=== PATIENT | male | born 1955 | race Two or more races ===

== ENCOUNTER 2017-08-15 21:17 | Inpatient (IN) | payer MEDICAID ==
--- NOTE | 2017-08-15 21:56 | EDPHY ---
H & P Stated Complaint: pt says he tripped and fell onto R hip, c/o R hip pain, unable to bear wt Time Seen by Provider: 08/15/17 21:50 HPI/ROS: Chief Complaint: Right hip pain HPI: 62-year-old male was shopping at [employer] when he tripped and fell onto his right hip. He did not hit his head. He had no loss of conscious. He is complaining of pain in his right hip and right upper thigh. He has not been able to walk on it. No prior injuries. No numbness or weakness. ROS: 10 point Review of Systems is negative except as noted in the HPI. PMH: Hypertension diabetes Social History: No smoking, no alcohol, no recreational drug use Family History: non-contributory Physical Exam: Gen: Awake, Alert, No Distress HEENT: Nose: no rhinorrhea Eyes: PERRLA, EOMI Mouth: Moist mucosa Neck: Supple, no JVD Chest: nontender, lungs clear to auscultation Heart: S1, S2 normal, no murmur Abd: Soft, non-tender, no guarding Back: no CVA tenderness, no midline tenderness Ext: no edema, is tenderness over his right lateral hip with right proximal femur. Decreased range of motion secondary to pain. Pelvis is stable to AP and lateral compression. Leg is not shortened or rotated. He has normal sensation distally. He has 2+ dorsalis pedis pulses. Capillary refills less than 2 sec. Skin: no rash Neuro: CN II-XII intact, Sensation grossly intact, Strength 5/5 in bilateral upper and lower extremities - Medical/Surgical History Hx Asthma: No Hx Chronic Respiratory Disease: No Hx Diabetes: Yes Hx Cardiac Disease: Yes Hx Renal Disease: No Hx Cirrhosis: No Hx Alcoholism: No Hx HIV/AIDS: No Hx Splenectomy or Spleen Trauma: No Other PMH: dm 2, hypertension - Social History Smoking Status: Never smoked Constitutional: Initial Vital Signs Temperature (C) 36.6 C 08/15/17 21:25 Heart Rate 73 08/15/17 21:25 Respiratory Rate 18 08/15/17 21:25 Blood Pressure 129/97 H 08/15/17 21:25 O2 Sat (%) 98 08/15/17 21:25 O2 Delivery Mode Room Air Allergies/Adverse Reactions: No Known Allergies Allergy (Unverified 08/15/17 21:30) Home Medications: Medication Instructions Recorded Chlorthalidone 08/15/17 Januvia 25 MG (*) 08/15/17 Losartan Potassium 08/15/17 Metformin HCl 08/15/17 glipiZIDE 08/15/17 Medical Decision Making - Diagnostics EKG Interpretation: ECG time 11:40 p.m., sinus rhythm rate of 94, normal axis, normal intervals, no acute ST or T-wave changes. Borderline Q-waves in the inferior leads. Imaging Results: Imaging Impressions Femur X-Ray 08/15/17 21:55 Impression: Suspected right femoral neck fracture. Dr. Larson discussed these findings by telephone with Jeremie Gutiérrez MD on at 2248 hours. Pelvis X-Ray 08/15/17 21:55 Impression: Obliquely lucency through the medial aspect of the right femoral neck may represent a fracture line. Dr. Larson discussed these findings by telephone with Jeremie Gutiérrez MD on at 2248 hours. Imaging: Discussed imaging studies w/ call center manager Radiologist ED Course/Re-evaluation: 62-year-old male with a nondisplaced femoral neck fracture on the right status post fall. Orthopedics has been paged. I have paged the hospitalist. Will admit for planned repair by Orthopedics likely in the morning. Case discussed with Dr. Snow, orthopedics. He will consult on the patient. - Data Points Laboratory Results: 08/15/17 23:35 Sodium Pending Potassium Pending Chloride Pending Carbon Dioxide Pending Anion Gap Pending BUN Pending Creatinine Pending Estimated GFR Pending Glucose Pending Calcium Pending Total Bilirubin Pending AST Pending ALT Pending Alkaline Phosphatase Pending Total Protein Pending Albumin Pending Departure - Departure Disposition: [facility] Inpatient Acute Clinical Impression: Hip fracture Condition: Fair Referrals: Humza Grimes MD [Primary Care Provider] - As per Instructions
[2017-08-15] MEDS ORDERED: HYDROmorphONE/DILAUDID 2 MG/ML INJ IVP PRN (23:42)
[2017-08-15] MEDS ORDERED: ONDANSETRON 4 MG/2 ML VIAL IVP PRN (23:42)
[2017-08-15] MEDS ORDERED: ONDANSETRON DISINTEGRATING 4 MG TAB PO PRN (23:42)
[2017-08-15] MEDS ORDERED: ACETAMINOPHEN 325 MG TAB PO PRN (23:42)
--- NOTE | 2017-08-15 23:42 | CPEKG ---
Heart Rate: 94 RR Interval: 638 P-R Interval: 144 QRSD Interval: 90 QT Interval: 344 QTC Interval: 431 P [place]: 76 QRS [place]: 56 T Wave [place]: 4 EKG Severity - BORDERLINE ECG - EKG Impression: SINUS RHYTHM EKG Impression: BORDERLINE INFERIOR Q WAVES Electronically Signed By: Jeremie Gutiérrez 16-Aug-2017 05:41:22
[2017-08-15] MEDS ORDERED: D50W 25 GM/50 ML SYR IVP PRN (23:51)
[2017-08-16] MEDS ORDERED: D50W 25 GM/50 ML VIAL IVP PRN
--- NOTE | 2017-08-16 00:13 | PDGENHP ---
History and Physical - Chief Complaint Fall - History of Present Illness 62 yo M w/ NIDDM and HTN presents with R hip pain and leg weakness after a fall. He was at [employer] today when he tripped over a bike rack and fell on his R side. Afterwards he experienced hip pain and leg weakness so he came to ED for evaluation. In ED CT revealed non-displaced hip fracture, so he is being admitted for orthopedic consultation. History Information - Allergies/Home Medication List Allergies/Adverse Reactions: No Known Allergies Allergy (Unverified 08/15/17 21:30) Home Medications: Chlorthalidone 08/15/17 [Last Taken Unknown] Januvia 25 MG (*) 08/15/17 [Last Taken Unknown] Losartan Potassium 08/15/17 [Last Taken Unknown] Metformin HCl 08/15/17 [Last Taken Unknown] glipiZIDE 08/15/17 [Last Taken Unknown] I have personally reviewed and updated: family history, medical history - Past Medical History diabetes type 2, hypertension - Family History Positive for: cancer - Social History Smoking Status: Never smoked Review of Systems Review of Systems: ROS: 10pt was reviewed & negative except for what was stated in HPI & below Physical Exam Physical Exam: Temp Pulse Resp BP Pulse Ox 36.6 C 86 18 159/95 H 95 08/15/17 21:25 08/15/17 23:44 08/15/17 23:44 08/15/17 23:44 08/15/17 23:44 Constitutional: no apparent distress, not in pain Eyes: PERRL, EOMI Ears, Nose, Mouth, Throat: moist mucous membranes, no oral mucosal ulcers Cardiovascular: regular rate and rhythym, no murmur, rub, or gallop Respiratory: no respiratory distress, no rales or rhonchi Gastrointestinal: normoactive bowel sounds, soft, non-tender abdomen Skin: warm, normal color Musculoskeletal: full muscle strength Neurologic: AAOx3, CN II-XII Intact Psychiatric: interacting appropriately, not anxious Lab Data & Imaging Review 08/15/17 23:35 Imaging Review: Imaging Impressions Femur X-Ray 08/15/17 21:55 Impression: Suspected right femoral neck fracture. Dr. Larson discussed these findings by telephone with Jeremie Gutiérrez MD on at 2248 hours. Pelvis X-Ray 03/15/18 21:55 Impression: Obliquely lucency through the medial aspect of the right femoral neck may represent a fracture line. Dr. Larson discussed these findings by telephone with Jeremie Gutiérrez MD on at [address] 08/15/17 22:48 Impression: Acute nondisplaced fracture of the right femoral neck. Dr. Larson discussed these findings by telephone with Jeremie Gutiérrez MD on at 2325 hours. Chest X-Ray 08/15/17 23:29 Impression: No acute thoracic abnormality. Assessment & Plan Assessment: 62 yo M w/ NIDDM and HTN presents with a hip fracture after a fall. Plan: 1. Acute nondisplaced fracture of the right femoral neck - S/p fall from standing height. Admitted for surgical consultation - Admit for observation - Maintain NPO - Orthopedic service consulted, appreciate assistance - Oxy, Dilaudid for pain control - Will check Vitamin D, would recommend Ca/Vit D +/- bisphosphonate, and DEXA scan as outpatient 2. NIDDM - On oral medications as outpatient, will manage with SSI while inpatient. 3. HTN - Continue home medications. Diet - NPO pending surgical consultation Ppx - SCDs Code - Full Dispo - Admit under observation status
[2017-08-16] MEDS: OXYCODONE/APAP 5/325 TAB PO PRN ×3 (01:02→17:55)
[2017-08-16 05:21] LABS: PLATELET COUNT 248 10^3/uL (150-400)
[2017-08-16] MEDS: INSULIN LISPRO 100 UNIT/ML SC SCH ×3 (10:03→17:53)
[2017-08-16 10:13] LABS: PROTIME(PATIENT) 13.4 SEC (12.0-15.0)
--- NOTE | 2017-08-16 12:57 | HOSPPROG ---
Hospitalist Progress Note Assessment/Plan: 62 yo M w/ NIDDM and HTN presents with a hip fracture after a fall. First encounter, chart reviewed. D/W RN. Plan: 1. Acute nondisplaced fracture of the right femoral neck - - S/p fall from standing height. -Admitted for surgical consultation -change to inpt -Maintain NPO - Orthopedic service consulted, appreciate assistance - Oxy, Dilaudid for pain control - Will check Vitamin D, would recommend Ca/Vit D +/- bisphosphonate, and DEXA scan as outpatient 2. NIDDM - -On oral medications as outpatient, will manage with SSI while inpatient. -home meds held 3. HTN - -Continue home medications. Diet - NPO pending surgical consultation Ppx - SCDs Code - Full Dispo - inpt Subjective: Having some pain. Resting. Waiting for surgery. Objective: Vital Signs Temp Pulse Resp BP Pulse Ox 36.7 C 68 12 132/77 H 94 08/16/17 12:00 08/16/17 12:00 08/16/17 12:00 08/16/17 12:00 08/16/17 12:00 Laboratory Results 08/16/17 04:52 08/16/17 04:52 08/15/17 08/16/17 08/17/17 05:59 05:59 05:59 Intake Total 0 Balance 0 PT 13.4 SEC (12.0-15.0) 08/16/17 09:31 INR 1.00 (0.83-1.16) 08/16/17 09:31 - Physical Exam Constitutional: no apparent distress, appears nourished, uncomfortable Eyes: PERRL, anicteric sclera, EOMI Ears, Nose, Mouth, Throat: moist mucous membranes, hearing normal, ears appear normal Cardiovascular: regular rate and rhythym, No JVD, No edema Respiratory: no respiratory distress, no rales or rhonchi, clear to auscultation Gastrointestinal: normoactive bowel sounds, No tenderness, No ascites Skin: warm, normal color, No mottled Musculoskeletal: joint tenderness, pain with ROM, generalized weakness Neurologic: AAOx3 Psychiatric: interacting appropriately, not anxious, not encephalopathic, thought process linear ICD10 Worksheet Patient Problems: Problems Problem Status Onset Hip fracture Acute
--- NOTE | 2017-08-16 14:08 | PDMN ---
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
--- NOTE | 2017-08-16 15:25 | ASMTCMCOM ---
CM Note CM Note Notes: Pt admitted with a hip fracture, after falling at [facility], [facility]. He states he marzena stay with his daughter here in [place], she has an apartment. DC needs uncertain, [place] w/f. DC Plan: TBD Date Signed: 08/16/2017 03:24 PM Electronically Signed By:Ashlie Perkins RN
[2017-08-16] MEDS: glyBURIDE 5 MG TAB PO SCH (17:54)
[2017-08-16] MEDS ORDERED: metFORMIN HCL 500 MG TAB PO SCH (18:00)
[2017-08-16] MEDS: LOSARTAN POTASSIUM 25 MG TAB PO SCH (20:07)
[2017-08-16] MEDS ORDERED: BUPIVACAINE 0.25% 30 ML SDV ONE (21:05)
[2017-08-16] MEDS ORDERED: LIDOCAINE 1% 300 MG/30 ML SDV ONE (21:05)
[2017-08-16] MEDS ORDERED: ceFAZolin 2 GM/SWFI 2 GM/20 ML SYR IVP ONE (21:39)
[2017-08-16] MEDS ORDERED: MIDAZOLAM 2 MG/2 ML VIAL IVP ONE (21:44)
--- NOTE | 2017-08-16 21:48 | PDANEPAE ---
ANE Past Medical History - Cardiovascular History Hx Hypertension: Yes Hx Arrhythmias: No Hx Chest Pain: No Hx Coronary Artery / Peripheral Vascular Disease: No Hx CHF / Valvular Disease: No Hx Palpitations: No - Pulmonary History Hx COPD: No Hx Asthma/Reactive Airway Disease: No Hx Recent Upper Respiratory Infection: No Hx Oxygen in Use at Home: No Hx Sleep Apnea: Yes Sleep Apnea Screening Result - Last Documented: Positive - Endocrine History Hx Diabetes: Yes Hypothyroid: No Hyperthyroid: No Obesity: no - Renal History Hx Renal Disorders: No - Liver History Hx Hepatic Disorders: No - Neurological & Psychiatric Hx Hx Neurological and Psychiatric Disorders: No - Cancer History Hx Cancer: No - Congenital Disorder History Hx Congenital Disorders: No - GI History GERD: no Hx Gastrointestinal Disorders: No - Chronic Pain History Chronic Pain: No ANE Review of Systems Review of Systems: - Exercise capacity Exercise capacity: >=4 METS - Systems Constitutional: Reports: no symptoms EENMT: Reports: no symptoms Cardiac: Reports: no symptoms Respiratory: Reports: no symptoms Gastrointestinal: Reports: no symptoms Genitourinary: Reports: no symptoms Muscolosketal: Reports: joint pain Skin: Reports: no symptoms Neurological: Reports: no symptoms ANE Patient History - Allergies Allergies/Adverse Reactions: No Known Allergies Allergy (Unverified 08/15/17 21:30) - Home Medications Home Medications: Linagliptin [Tradjenta] 5 mg PO DAILY 08/15/17 [Last Taken 08/15/17] Losartan Potassium [Cozaar 25 mg (*)] 25 mg PO HS 08/15/17 [Last Taken 08/15/17] glyBURIDE [Glyburide] 10 mg PO BIDMEAL 08/15/17 [Last Taken 08/15/17 18:00] metFORMIN HCL [Glucophage 500 mg (*)] 1,000 mg PO BIDMEAL 08/15/17 [Last Taken 08/15/17 18:00] Aspirin [Aspirin 81mg (*)] 81 mg PO DAILY 08/16/17 [Last Taken 08/15/17] Chlorthalidone [Chlorthalidone 25 mg (*)] 25 mg PO DAILY 08/16/17 [Last Taken ] - NPO status NPO Since - Liquids (Date): 08/16/17 NPO Since - Liquids (Time): 13:30 NPO Since - Solids (Date): 08/16/17 NPO Since - Solids (Time): 13:30 - Smoking Hx Smoking Status: Never smoked - Alcohol Use Alcohol Use: Rarely - Family Anes Hx Family Anes Hx: neg - N/A ANE Labs/Vital Signs - Labs Result Diagrams: 08/16/17 04:52 08/16/17 04:52 - Vital Signs Blood Pressure: 155/100 Heart Rate: 67 Respiratory Rate: 18 O2 Sat (%): 96 Height: 182.88 cm Weight: 81.739 kg ANE Physical Exam - Airway Neck exam: FROM Mallampati Score: Class 2 Mouth exam: normal dental/mouth exam - Pulmonary Pulmonary: no respiratory distress, no rales or rhonchi, clear to auscultation - Cardiovascular Cardiovascular: regular rate and rhythym, no murmur, rub, or gallop - ASA Status ASA Status: II ANE Anesthesia Plan Anesthesia Plan: general endotracheal anesthesia Total IV Anesthesia: No
[2017-08-16] MEDS ORDERED: ceFAZolin 2 GM/SWFI 20 ML SYR IVP ONE (21:50)
[2017-08-16] MEDS ORDERED: MIDAZOLAM 2 MG/2 ML VIAL ONE (21:57)
--- NOTE | 2017-08-16 22:02 | PDCONSULT ---
Manipulator Operator Note: Ortho Consult Note DOS: 08/16/2017 CC: Right hip fracture HPI: 62y M h/o HTN, NIDDM p/w Right hip femoral neck fracture after fall at [employer] over bike rack while purchasing a bike rack yesterday evening. No LOC. PMHx: HTN, NIDDM Meds: includes metformin, antihypertensive PSHx: Lasik All: NKDA SocHx: previously lived in [facility]. Active at baseline. 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 ROS: All systems were at baseline except for MSK as described in HPI PE: AxOx3. Unlabored breathing. Hearing intact RLE: SILT S/S/SP/DP/T. 2+ DP. 5/5 EHL/FHL/TA/GS. TTP anterior groin. Pain with log roll Imaging: Right hip femoral neck fracture, minimally displaced. Fracture line basicervical/cervical on CT. AP: 62y M p/w min displaced right hip femoral neck fracture. - Plan for operative fixation of right hip - NPO
[2017-08-16] MEDS ORDERED: ONDANSETRON 4 MG/2 ML VIAL ONE (22:08)
[2017-08-16] MEDS ORDERED: PROPOFOL 200 MG/20 ML VIAL ONE (22:08)
[2017-08-16] MEDS ORDERED: fentaNYL 100 MCG/2 ML INJ ONE (22:08)
[2017-08-16] MEDS ORDERED: PROPOFOL/EMULSION 500 MG/50 ML BOTTLE IV ONE (22:08)
[2017-08-16] MEDS ORDERED: DEXAMETHASONE 4 MG/ML VIAL ONE (22:08)
[2017-08-16] MEDS ORDERED: REMIFENTANIL HCL 1 MG VIAL ONE (22:08)
[2017-08-16] MEDS ORDERED: ROCURONIUM 50 MG/5 ML VIAL ONE (22:09)
[2017-08-16] MEDS ORDERED: LIDOCAINE 2% 5 ML SDV ONE (22:10)
[2017-08-16] MEDS ORDERED: PHENYLEPHRINE HCL 100 MCG/ML SYR IVP PRN (22:50)
[2017-08-16] MEDS ORDERED: LR 500 ML IV PRN (22:50)
[2017-08-16] MEDS ORDERED: OXYCODONE/APAP 5/325 TAB PO PRN (22:50)
[2017-08-16] MEDS ORDERED: epHEDrine SULFATE 10 MG/ML SYR IVP PRN (22:50)
[2017-08-16] MEDS ORDERED: HYDROCODONE/APAP 5/325 TAB PO PRN (22:50)
[2017-08-16] MEDS ORDERED: ONDANSETRON 4 MG/2 ML VIAL IVP PRN (22:50)
[2017-08-16] MEDS ORDERED: ACETAMINOPHEN 500 MG TAB PO PRN (22:50)
[2017-08-16] MEDS ORDERED: NALOXONE HCL 0.4 MG/ML INJ IVP PRN (22:50)
[2017-08-16] MEDS ORDERED: PROMETHAZINE HCL 25 MG/ML INJ IVP PRN (22:50)
[2017-08-16] MEDS ORDERED: PHENYLEPHRINE HCL 100 MCG/ML SYR ONE (23:12)
[2017-08-16] MEDS ORDERED: BACITRACIN ZINC 14.2 GM OINTTUBE TP ONE (23:58)
[2017-08-17] MEDS ORDERED: NEOSTIGMINE METHYLSULFATE 3 MG/3 ML SYR ONE
[2017-08-17] MEDS ORDERED: GLYCOPYRROLATE 0.2 MG/1 ML VIAL ONE
--- NOTE | 2017-08-17 00:19 | POSTOPPROG ---
Post Op Note Date of Operation: 08/17/17 Surgeon: Santo Snow Anesthesia: GET(General Endotracheal) Pre-op Diagnosis: Right femoral neck fracture Post-op Diagnosis: Same Procedure: Percutaneous pinning of Right femoral neck fracture Inf/Abcess present in the surg proc area at time of surgery?: No EBL: 50-100
--- NOTE | 2017-08-17 00:28 | SUROPNOTE ---
[facility] Operative Report - Surgery Operative Note DOS: 08/16/2017 Attg: Snato Snow Asst: No Preop Dx: Right femoral neck fracture Postop Dx: Same Procedure: Percutaneous pinning of Right femoral neck fracture Indication: 62y M p/w Right femoral neck fracture after falling over bicycle rack at [facility]. Procedure note: After review of consent, the patient was taken to the OR. He was put to sleep and transferred to the bed. The right leg was prepped and draped in typical fashion. A timeout was performed confirming the patient, procedure, surgery, site, and antibiotics status. We used the fluoro to get a sense of the fracture again. The fracture was minimally displaced and the fracture line appeared more cervical, so we opted for cannulated screw fixation for the fracture. We placed guidewires through the skin up into the femur in an inverted triangular arrangement after cycling through lateral and anterior fluoro views multiple times to ensure good spread but also proper alignment. Once the pins were in satisfactory alignment, we measured the depths of each pin. The pins were then drilled and a screw placed sequentially for all three pins. We checked the screw depths and then removed the guidewires. We irrigated the lateral thigh wounds and then closed them with vicryl and yue for the skin. A sterile dressing was placed Count was correct at the conclusion of the case. The patient was taken back to the PACU Complications: none EBL: 50cc Drains: none Specimen: None
[2017-08-17] MEDS ORDERED: fentaNYL 100 MCG/2 ML INJ ONE ×2 (00:30→00:56)
[2017-08-17] MEDS: fentaNYL 100 MCG/2 ML INJ IVP PRN ×2 (00:32→00:40)
--- NOTE | 2017-08-17 00:46 | POSTANESTH ---
Post Anesthetic Evaluation Cardiovascular Status: Normal, Stable, Similar to Pre-Op Cond Respiratory Status: Normal, Stable Level of Consciousness/Mental Status: Can Participate in Eval Pain Control: Adequate, Prn Tx Ordered Nausea/Vomiting Control: Adequate, Prn Tx Ordered Complications Possibly Related to Anesthesia: None Noted
[2017-08-17] MEDS: ceFAZolin 2 GM/SWFI 2 GM/20 ML SYR IVP SCH ×2 (05:30→14:26)
[2017-08-17] MEDS: CHLORTHALIDONE 25 MG TAB PO SCH (08:37)
[2017-08-17] MEDS: glyBURIDE 5 MG TAB PO SCH ×2 (08:37→17:54)
[2017-08-17] MEDS: INSULIN LISPRO 100 UNIT/ML SC SCH ×3 (08:42→17:53)
[2017-08-17] MEDS: OXYCODONE/APAP 5/325 TAB PO PRN (12:36)
[2017-08-17] MEDS ORDERED: ACETAMINOPHEN 325 MG TAB PO SCH (16:00)
[2017-08-17] MEDS ORDERED: D50W 25 GM/50 ML SYR IVP PRN (16:02)
--- NOTE | 2017-08-17 16:37 | HOSPPROG ---
Hospitalist Progress Note Assessment/Plan: 62 yo M w/ NIDDM and HTN presents with a hip fracture after a fall. First encounter, chart reviewed. D/W RN. Plan: 1. Acute nondisplaced fracture of the right femoral neck - pod 1 2. vit d deficiency: caco3 and vit d started 2. NIDDM - on po meds increase ss given hyperglycemia last a1c in 7's 3. HTN - -Continue home medications. Diet - diabetic Ppx - lmwh Code - Full Dispo - inpt Subjective: pain well controlled Objective: Vital Signs Temp Pulse Resp BP Pulse Ox 37.0 C 90 12 148/90 H 94 08/17/17 11:56 08/17/17 11:56 08/17/17 11:56 08/17/17 11:56 08/17/17 11:56 08/16/17 08/17/17 08/18/17 05:59 05:59 05:59 Intake Total 1160 400 Output Total 635 600 Balance 525 -200 PT 13.4 SEC (12.0-15.0) 08/16/17 09:31 INR 1.00 (0.83-1.16) 08/16/17 09:31 - Physical Exam Constitutional: no apparent distress, appears nourished Eyes: PERRL, anicteric sclera Ears, Nose, Mouth, Throat: moist mucous membranes, hearing normal Cardiovascular: regular rate and rhythym, no murmur, rub, or gallop Respiratory: no respiratory distress, no rales or rhonchi Gastrointestinal: normoactive bowel sounds, soft, non-tender abdomen Genitourinary: no bladder fullness, No levine in urethra Skin: warm, normal color Musculoskeletal: full muscle strength Neurologic: AAOx3 ICD10 Worksheet Patient Problems: Problems Problem Status Onset Hip fracture Acute
[2017-08-17] MEDS: ACETAMINOPHEN 500 MG TAB PO SCH ×2 (17:24→21:32)
[2017-08-17] MEDS: ENOXAPARIN 40 MG/0.4 ML SYR SC SCH (17:25)
[2017-08-17] MEDS: CHOLECALCIFEROL VIT D3 2,000 UNITS TAB/CAP PO SCH (17:25)
[2017-08-17] MEDS: oxyCODONE IR 5 MG TAB PO PRN (21:32)
[2017-08-17] MEDS: CALCIUM CARB W/VIT D 500 MG TAB PO SCH (21:32)
[2017-08-17] MEDS: LOSARTAN POTASSIUM 25 MG TAB PO SCH (21:32)
[2017-08-18] MEDS: ACETAMINOPHEN 500 MG TAB PO SCH ×3 (06:03→22:19)
[2017-08-18] MEDS: INSULIN LISPRO 100 UNIT/ML SC SCH ×4 (09:34→22:21)
[2017-08-18] MEDS: ENOXAPARIN 40 MG/0.4 ML SYR SC SCH (09:34)
[2017-08-18] MEDS: CHLORTHALIDONE 25 MG TAB PO SCH (09:35)
[2017-08-18] MEDS: CHOLECALCIFEROL VIT D3 2,000 UNITS TAB/CAP PO SCH (09:35)
[2017-08-18] MEDS: glyBURIDE 5 MG TAB PO SCH ×2 (09:35→18:04)
[2017-08-18] MEDS: CALCIUM CARB W/VIT D 500 MG TAB PO SCH ×2 (09:36→22:20)
[2017-08-18] MEDS: oxyCODONE IR 5 MG TAB PO PRN ×2 (12:15→17:29)
--- NOTE | 2017-08-18 14:08 | ASMTCMCOM ---
CM Note CM Note Notes: Spoke with patient and daughter about discharge plans. Patient will stay with his daughter Tess upon d.c. PT is recommending home care. Referral sent to [facility] and on-call RN Umm notified. Tess would like to know about possible d.c time since she works during the day and will be the one picking up patient. Unfortunately, ortho has not been back to see patient since surgery. I assured patient and daughter that we would help facilitate discharge when more information is known. Date Signed: 08/18/2017 02:07 PM Electronically Signed By:Marlene Jorge RN
--- NOTE | 2017-08-18 15:42 | HOSPPROG ---
Hospitalist Progress Note Assessment/Plan: 62 yo M w/ NIDDM and HTN presents with a hip fracture after a fall. First encounter, chart reviewed. D/W RN. Plan: 1. Acute nondisplaced fracture of the right femoral neck - pod 2 2. vit d deficiency: caco3 and vit d started 2. NIDDM - remains hyperglycemic add lantus continue po meds 3. HTN - -Continue home medications. Diet - diabetic Ppx - lmwh moved bowels Code - Full Dispo - inpt Subjective: hyperglycemic Objective: Vital Signs Temp Pulse Resp BP Pulse Ox 36.9 C 83 16 111/75 92 08/18/17 08:00 08/18/17 08:00 08/18/17 08:00 08/18/17 09:35 08/18/17 08:00 08/17/17 08/18/17 08/19/17 05:59 05:59 05:59 Intake Total 1160 900 Output Total 635 1675 275 Balance 525 -775 -275 PT 13.4 SEC (12.0-15.0) 08/16/17 09:31 INR 1.00 (0.83-1.16) 08/16/17 09:31 - Physical Exam Constitutional: no apparent distress, appears nourished Eyes: PERRL, anicteric sclera Ears, Nose, Mouth, Throat: moist mucous membranes, hearing normal Cardiovascular: regular rate and rhythym, no murmur, rub, or gallop Respiratory: no respiratory distress, no rales or rhonchi Gastrointestinal: normoactive bowel sounds, soft, non-tender abdomen Genitourinary: no bladder fullness, No levine in urethra Skin: warm, normal color Musculoskeletal: full muscle strength, no muscle tenderness, other (leg soft. no hematoma) Neurologic: AAOx3, sensation intact bilaterally Psychiatric: interacting appropriately ICD10 Worksheet Patient Problems: Problems Problem Status Onset Hip fracture Acute
--- NOTE | 2017-08-18 16:59 | SOAPPROG ---
GISELLAAP Progress Note Assessment/Plan: Assessment: 62y M s/p Right femoral neck fracture Percutaneous pinning Plan: - Progressing with PT - Continue 25% partial weightbearing to RLE with walker/crutches until followup with Dr. Snow - Keep dressing intact and dry unless it becomes soiled/wet. - Followup with Dr. Snow in 14-21 days - should call [phone] - Pt seems to be recovering well from ortho issues standpoint. No additional ortho interventions for fracture planned. My sense is that he should be able to leave soon, but I defer to PT on timing of discharge and placement recommendations based on his progress with them. - Call if ? - Appreciate primary team care: defer on glucose management concerns to primary team. 08/18/17 17:03 Subjective: Patient pain very well controlled. Some stiffness of hip. Worked with PT, including stairs. Objective: Vital Signs Temp Pulse Resp BP Pulse Ox 37.0 C 80 16 149/92 H 94 08/18/17 16:00 08/18/17 16:00 08/18/17 16:00 08/18/17 16:00 08/18/17 16:00 08/17/17 08/18/17 08/19/17 05:59 05:59 05:59 Intake Total 1160 900 Output Total 635 1675 275 Balance 525 -775 -275 PT 13.4 SEC (12.0-15.0) 08/16/17 09:31 INR 1.00 (0.83-1.16) 08/16/17 09:31 AxOx3 Unlabored breathing RLE: SILT S/S/SP/DP/T, 10/05 EHL/FHL/TA/GS, WWP. CDI hip dressing ICD10 Worksheet Patient Problems: Problems Problem Status Onset Hip fracture Acute
[2017-08-18] MEDS: INSULIN GLARGINE 100 UNITS/ML UNIT SC SCH (18:05)
[2017-08-18] MEDS: LOSARTAN POTASSIUM 25 MG TAB PO SCH (22:19)
[2017-08-19] MEDS: ACETAMINOPHEN 500 MG TAB PO SCH ×3 (05:35→21:02)
[2017-08-19 07:42] VITALS: RESP 16
[2017-08-19] MEDS: INSULIN LISPRO 100 UNIT/ML SC SCH ×4 (08:37→21:06)
[2017-08-19] MEDS: CALCIUM CARB W/VIT D 500 MG TAB PO SCH ×2 (08:38→21:02)
[2017-08-19] MEDS: ENOXAPARIN 40 MG/0.4 ML SYR SC SCH (08:38)
[2017-08-19] MEDS: glyBURIDE 5 MG TAB PO SCH ×2 (08:38→18:15)
[2017-08-19] MEDS: CHOLECALCIFEROL VIT D3 2,000 UNITS TAB/CAP PO SCH (08:39)
[2017-08-19] MEDS: CHLORTHALIDONE 25 MG TAB PO SCH (08:40)
[2017-08-19] MEDS: INSULIN GLARGINE 100 UNITS/ML UNIT SC SCH (08:43)
[2017-08-19] MEDS ORDERED: MAGNESIUM CITRATE 300 ML BOTTLE PO ONE (09:15)
--- NOTE | 2017-08-19 09:16 | HOSPPROG ---
Hospitalist Progress Note Assessment/Plan: 62 yo M w/ NIDDM and HTN presents with a hip fracture after a fall. First encounter, chart reviewed. D/W RN. Plan: 1. Acute nondisplaced fracture of the right femoral neck - pod 3 doing well w pt constipation: mag citrate 2. vit d deficiency: caco3 and vit d started 2. NIDDM - remains hyperglycemic add lantus continue po meds 3. HTN - -Continue home medications. Diet - diabetic Ppx - lmwh moved bowels Code - Full Dispo - likely home today w home pt > 30 minutes Subjective: doing well. amenable to dc Objective: Vital Signs Temp Pulse Resp BP Pulse Ox 36.9 C 73 16 137/87 H 91 L 08/19/17 07:42 08/19/17 07:42 08/19/17 07:42 08/19/17 07:42 08/19/17 07:42 08/18/17 08/19/17 08/20/17 05:59 05:59 05:59 Intake Total 900 700 Output Total 1675 1125 Balance -775 -425 PT 13.4 SEC (12.0-15.0) 08/16/17 09:31 INR 1.00 (0.83-1.16) 08/16/17 09:31 - Physical Exam Constitutional: no apparent distress, appears nourished Eyes: PERRL, anicteric sclera Ears, Nose, Mouth, Throat: moist mucous membranes, hearing normal Cardiovascular: regular rate and rhythym, no murmur, rub, or gallop Respiratory: no respiratory distress, no rales or rhonchi Gastrointestinal: normoactive bowel sounds, soft, non-tender abdomen Genitourinary: no bladder fullness, No levine in urethra Skin: warm, normal color Musculoskeletal: full muscle strength Neurologic: AAOx3 ICD10 Worksheet Patient Problems: Problems Problem Status Onset Hip fracture Acute
--- NOTE | 2017-08-19 11:06 | PDIAF ---
- Diagnosis Diagnosis: hip fracture Code Status: Full Code - Medication Management Discharge Medications: Medications to Continue on Transfer Linagliptin [Tradjenta] 5 mg PO DAILY 08/15/17 [Last Taken 08/15/17] Losartan Potassium [Cozaar 25 mg (*)] 25 mg PO HS 08/15/17 [Last Taken 08/15/17] glyBURIDE [Glyburide] 10 mg PO BIDMEAL 08/15/17 [Last Taken 08/15/17 18:00] metFORMIN HCL [Glucophage 500 mg (*)] 1,000 mg PO BIDMEAL 08/15/17 [Last Taken 08/15/17 18:00] Aspirin [Aspirin 81mg (*)] 81 mg PO DAILY 08/16/17 [Last Taken 08/15/17] Chlorthalidone [Chlorthalidone 25 mg (*)] 25 mg PO DAILY 08/16/17 [Last Taken ] Calcium Carb W/Vit D [Calcium Carb W/Vit D 500/200 (*)] 500 mg PO BID #60 tab [Last Taken Unknown] Cholecalciferol Vit D3 [Vitamin D3 2000 units tab (OTC)] 5,000 units PO DAILY # 30 each 08/19/17 [Last Taken Unknown] Enoxaparin [Lovenox 40 MG (*)] 40 mg SC DAILY #25 syr 08/19/17 [Last Taken Unknown] oxyCODONE IR [Oxycodone Ir (*)] 5 - 10 mg PO Q4HRS PRN #36 tab 08/19/17 [Last Taken Unknown] Discharge Medications: Refer to the Discharge Home Medication list for PRN reason. - Orders Services needed: Home Care, Physical Therapy, Occupational Therapy Home Care Face to Face: I certify that this patient was under my care and that I had the required [id number] encounter meeting the encounter requirements on the discharge day. My findings support the fact that the patient is homebound as defined in Home Care Face to Face Continued: CMS Chapter 7 Medicare Benefits Manual 30.1.1 , The condition of the patient is such that there exists a normal inability to leave home and consequently, leaving home would require a considerable and taxing effort. - Follow Up Care Current Providers and Referrals: Humza Grimes MD [Primary Care Provider] - As per Instructions
--- NOTE | 2017-08-19 13:11 | GDS ---
[f rep st] DISCHARGE SUMMARY DISCHARGE DIAGNOSES: 1. Hip fracture secondary to mechanical fall, status post percutaneous pinning of a right femoral ne ck fracture. Surgery occurred promptly at the time of admission. 2. Diabetes. 3. Hyperglycemia. 4. Constipation. 5. Vitamin D deficiency. Please see admission history and physical by Dr. Fritz Lu. The patient presented with fa ll in [facility], tripped over the bike rack, is unable to walk. He is admitted. He is found to have a low vitamin D level, started on vitamin D and calcium. He underwent a prompt surgical repair. He had h yperglycemia. He has history of relatively well controlled diabetes, is felt to be reactive hypergly cemia. The patient is discharged home with home care as he has done very well with physical therapy and he is young and otherwise fairly healthy. His medications are MiraLAX, enoxaparin, oxycodone, vitamin D, and calcium with vitamin D. /[id number]/MODL
--- NOTE | 2017-08-19 17:43 | ASMTCMCOM ---
CM Note CM Note Notes: Pt had dc orders earlier today, plan was for him to go home w/daughter, Tess and be followed by [facility]. However, was informed at end of day by pt that daughter is going out of town and he was going to stay at hotel. Then received call from daughter who was very concerned about him going to hotel alone. This does not seem like ideal dc plan. Daughter not comfortable with him leaving tonight. Discussed w/swing MD, Dr Torres, who has canceled dc so that we can work on better plan in AM. Pt in agreement with this, notified dtr, Tess ([phone]) that we would keep pt over night. I asked her to think about alternate plans; she asked about rehab and I explained that he would have to qualify for LT M'Ca[facility] and go for 30 day stay; she asked if there was somewhere he could do respite stay for a few days. Pt says he does have friends in area and he was planning on Saturday to go stay in the house of a friend where the friend's mother lives. Tess will be available in AM to discuss dc options. Left voicemail updating PSY[facility]IATRIC. Date Signed: 08/19/2017 05:43 PM Electronically Signed By:Earline Silva RN
[2017-08-19] MEDS: LOSARTAN POTASSIUM 25 MG TAB PO SCH (21:01)
[2017-08-19] MEDS: oxyCODONE IR 5 MG TAB PO PRN (21:06)
[2017-08-20] MEDS: ACETAMINOPHEN 500 MG TAB PO SCH (07:27)
[2017-08-20 07:59] VITALS: BP 145/84; PULSE 73; TEMP 98.3; O2SAT 90
[2017-08-20] MEDS: INSULIN LISPRO 100 UNIT/ML SC SCH ×2 (08:18→12:35)
[2017-08-20] MEDS: CALCIUM CARB W/VIT D 500 MG TAB PO SCH (08:18)
[2017-08-20] MEDS: glyBURIDE 5 MG TAB PO SCH (08:18)
[2017-08-20] MEDS: CHLORTHALIDONE 25 MG TAB PO SCH (08:18)
[2017-08-20] MEDS: CHOLECALCIFEROL VIT D3 2,000 UNITS TAB/CAP PO SCH (08:18)
[2017-08-20] MEDS: INSULIN GLARGINE 100 UNITS/ML UNIT SC SCH (08:19)
[2017-08-20] MEDS: ENOXAPARIN 40 MG/0.4 ML SYR SC SCH (08:19)
[2017-08-20] MEDS ORDERED: MAGNESIUM HYDROXIDE 30 ML UDCUP PO PRN (08:37)
[2017-08-20] MEDS ORDERED: LACTULOSE 20 GM/30 ML UDCUP PO PRN (08:37)
[2017-08-20] MEDS ORDERED: BISACODYL 10 MG SUPP PR PRN (08:37)
--- NOTE | 2017-08-20 08:40 | HOSPPROG ---
Hospitalist Progress Note Assessment/Plan: 62 yo M w/ NIDDM and HTN presents with a hip fracture after a fall. First encounter, chart reviewed. D/W RN. * Acute nondisplaced fracture of the right femoral neck - pod 4 doing well w pt *constipation: added bowel protocol * vit d deficiency: caco3 and vit d started * NIDDM - remains hyperglycemic add lantus continue po meds will need f/u with his PCP * HTN - -Continue home medications. Ppx - lmwh moved bowels Code - Full Dispo - dc to [facility] with homecare checking on him, previous provider had scripts sent to [facility] Subjective: Clint is feeling well, ready to dc Objective: Vital Signs Temp Pulse Resp BP Pulse Ox 36.8 C 73 16 145/84 H 90 L 08/20/17 07:58 08/20/17 07:58 08/20/17 07:58 08/20/17 07:58 08/20/17 07:58 08/19/17 08/20/17 08/21/17 05:59 05:59 05:59 Intake Total 700 1050 Output Total 1125 250 Balance -425 1050 -250 PT 13.4 SEC (12.0-15.0) 08/16/17 09:31 INR 1.00 (0.83-1.16) 08/16/17 09:31 - Physical Exam Constitutional: no apparent distress, appears nourished, not in pain Eyes: PERRL Ears, Nose, Mouth, Throat: hearing normal Cardiovascular: regular rate and rhythym Respiratory: no respiratory distress Skin: warm Musculoskeletal: generalized weakness Neurologic: AAOx3 Psychiatric: interacting appropriately, not anxious ICD10 Worksheet Patient Problems: Problems Problem Status Onset Hip fracture Acute
[2017-08-20] MEDS ORDERED: SENNOSIDES/DOCUSATE SODIUM TAB PO SCH (09:00)
[2017-08-20] MEDS ORDERED: POLYETHYLENE GLYCOL 3350 17 GM PKT PO SCH (09:00)
--- NOTE | 2017-08-20 09:53 | PDIAF ---
- Diagnosis Diagnosis: hip fracture Code Status: Full Code - Medication Management Discharge Medications: Medications to Continue on Transfer Linagliptin [Tradjenta] 5 mg PO DAILY 08/15/17 [Last Taken 08/15/17] Losartan Potassium [Cozaar 25 mg (*)] 25 mg PO HS 08/15/17 [Last Taken 08/15/17] glyBURIDE [Glyburide] 10 mg PO BIDMEAL 08/15/17 [Last Taken 08/15/17 18:00] metFORMIN HCL [Glucophage 500 mg (*)] 1,000 mg PO BIDMEAL 08/15/17 [Last Taken 08/15/17 18:00] Aspirin [Aspirin 81mg (*)] 81 mg PO DAILY 08/16/17 [Last Taken 08/15/17] Chlorthalidone [Chlorthalidone 25 mg (*)] 25 mg PO DAILY 08/16/17 [Last Taken ] Calcium Carb W/Vit D [Calcium Carb W/Vit D 500/200 (*)] 500 mg PO BID #60 tab [Last Taken Unknown] Cholecalciferol Vit D3 [Vitamin D3 2000 units tab (OTC)] 5,000 units PO DAILY # 30 each 08/19/17 [Last Taken Unknown] Enoxaparin [Lovenox 40 MG (*)] 40 mg SC DAILY #25 syr 08/19/17 [Last Taken Unknown] oxyCODONE IR [Oxycodone Ir (*)] 5 - 10 mg PO Q4HRS PRN #36 tab 08/19/17 [Last Taken Unknown] Discharge Medications: Refer to the Discharge Home Medication list for PRN reason. - Orders Services needed: Home Care, Physical Therapy Home Care Face to Face: I certify that this patient was under my care and that I had the required [id number] encounter meeting the encounter requirements on the discharge day. My findings support the fact that the patient is homebound as defined in Home Care Face to Face Continued: CMS Chapter 7 Medicare Benefits Manual 30.1.1 , The condition of the patient is such that there exists a normal inability to leave home and consequently, leaving home would require a considerable and taxing effort. Diet Recommendation: ADA 2200 consistent carb Activity/Weight Bearing Restrictions: LE partial weightbearing (25%) with walker until initial followup. Keep dressing intact and dry. Change if soiled. Followup with Dr. Snow in [facility] in 14-21 days. Call [phone] to setup appointment - Follow Up Care Current Providers and Referrals: Humza Grimes MD [Primary Care Provider] - As per Instructions Santo Snow MD [Medical Doctor] - 09/03/17 (please call to schedule follow up appt for this day)
--- NOTE | 2017-08-20 14:46 | GDS ---
[f rep st] DISCHARGE SUMMARY DISCHARGE DIAGNOSIS: 1. Acute nondisplaced fracture of the right femoral neck, status post pinning. 2. Constipation. 3. Vitamin D deficiency. 4. Non insulin-dependent diabetes. 5. Hypertension. CONSULTATION: Dr. Snow. BRIEF HISTORY: Please see the discharge summary done by Dr. Harris on 08/19/2017. Patient's dischar ge was held because of discharge placement. The plan is for him to go to [facility]. There he will receive PT and nurse to follow up with him. He will be then staying at a friend's house later t his week and then be staying with his daughter once again. CONDITION AT DISCHARGE: Stable. Blood pressure is 145/84, heart rate is 73, respiratory rate is 16, O2 saturations on room are 94%, temperature is 36.8 Celsius. MEDICATIONS AT DISCHARGE: Please see the EMR. DISCHARGE INSTRUCTIONS: 1. To follow up with Dr. Snow in the outpatient setting. 2. To stay on an ADA diet. 3. Right lower extremity partial weightbearing with walker until he follows up with Dr. Snow. TIME SPENT: Greater than 30 minutes discharging and coordinating patient's care today. /[id number]/MODL
--- NOTE | 2017-08-20 16:04 | ASMTCMCOM ---
CM Note CM Note Notes: Pt medically stable for d/c to the [facility] hotel with HC PT/RN. Spoke w pt dghtr Tess who has now had some time to make a plan for pt meals and feels pt can safely d/c today. [facility] is at [address] in [place]. Pt friends will bring him meals. Pt will stay w a friend starting Saturday at [address] [place]. Tess is back in town this weekend and will help pt. HC orders to be obtained in [employer]. family to transport. Date Signed: 08/20/2017 04:04 PM Electronically Signed By:MALIHA Izaguirre
--- NOTE | 2017-08-20 16:05 | ASDISCHSUM ---
Discharge Information Plan Status:Home with Home Health Medically Cleared to Leave: Discharge Date:08/20/2017 01:22 PM CM D/C Disposition:Home Health Service ADT D/C Disposition:Home Health Service Projected Discharge Date:08/18/2017 11:00 AM Transportation at D/C:Family Discharge Delay Reason: Follow-Up Date:08/18/2017 11:00 AM Discharge Slot: Final Diagnosis: Placement Information Referral Type:*Home Health Care Services Referral ID:[id number] Provider Name:[facility] Care Address 1[address] Address 2: City:[place] Selection Factors: State:[place] Patient Contact Information Contact Name:ARUNA Relationship:Daughter Address:[address] Work Phone: City:[place] Alternate Phone: State/Zip Code:[place] [address] Email: Financial Information Financial Class:Medicaid Primary Plan Desc:MEDICAID HEALTH FIRST [place] IP Primary Plan Number:[id number] Secondary Plan Desc: Secondary Plan Number: Assessment Information [facility] CM Progress Note CM Note CM Note Notes: Pt admitted with a hip fracture, after falling at [employer], [facility] He states he marzena stay with his daughter here in [place], she has an apartment. DC needs uncertain, CM w/f. DC Plan: TBD Date Signed: 08/16/2017 03:24 PM Electronically Signed By:Ashlie Perkins RN [facility] CM Progress Note CM Note CM Note Notes: Spoke with patient and daughter about discharge plans. Patient will stay with his daughter Tess upon d.c. PT is recommending home care. Referral sent to [facility] and on-call YADI Salomon notified. Tess would like to know about possible d.c time since she works during the day and will be the one picking up patient. Unfortunately, ortho has not been back to see patient since surgery. I assured patient and daughter that we would help facilitate discharge when more information is known. Date Signed: 08/18/2017 02:07 PM Electronically Signed By:Marlene Jorge RN [facility] CM Progress Note CM Note CM Note Notes: Pt had dc orders earlier today, plan was for him to go home w/daughter, Tess and be followed by [facility]. However, was informed at end of day by pt that daughter is going out of town and he was going to stay at [facility]. Then received call from daughter who was very concerned about him going to [facility] alone. This does not seem like ideal dc plan. Daughter not comfortable with him leaving [facility]. Discussed w/swing MD, Dr Torres, who has canceled dc so that we can work on better plan in AM. Pt in agreement with this, notified dtr, Tess ([phone]) that we would keep pt over night. I asked her to think about alternate plans; she asked about rehab and I explained that he would have to qualify for LT M'Ca[facility] and go for 30 day stay; she asked if there was somewhere he could do respite stay for a few days. Pt says he does have friends in area and he was planning on Saturday to go stay in the house of a friend where the friend's mother lives. Tess will be available in AM to discuss dc options. Left voicemail updating [facility]. Date Signed: 08/19/2017 05:43 PM Electronically Signed By:Earline Silva RN [facility] CM Progress Note CM Note CM Note Notes: Pt medically stable for d/c to the [facility] hot with HC PT/RN. Spoke w pt dghtr Tess who has now had some time to make a plan for pt meals and feels pt can safely d/c today. [facility] is at [address] in [place]. Pt friends will bring him meals. Pt will stay w a friend starting Saturday at [address] [place]. Tess is back in town this weekend and will help pt. HC orders to be obtained in [employer]. family to transport. Date Signed: 08/20/2017 04:04 PM Electronically Signed By:MALIHA Izaguirre Intervention Information
== END 2017-08-20 13:22 | disposition home health service (06) | DRG 482 ==
LOC: F3E 08-16 00:47 → OBSVTOIN 08-16 12:30 → F3N 08-16 17:13
PROVIDERS: ADMIT Student in an Organized Health Care Education/Training Program; ATTEND Student in an Organized Health Care Education/Training Program
PROC: 0QS635Z Reposition Right Upper Femur with External Fixation Device, Percutaneous Approach (ICD-10-PCS; principal; 2017-08-16 21:30)
DX: S72.001A Fracture of unspecified part of neck of right femur, initial encounter for closed fracture (principal); K59.00 Constipation, unspecified; E55.9 Vitamin D deficiency, unspecified; E11.9 Type 2 diabetes mellitus without complications; I10 Essential (primary) hypertension; W01.0XXA Fall on same level from slipping, tripping and stumbling without subsequent striking against object, initial encounter; Y92.513 Shop (commercial) as the place of occurrence of the external cause
CPT/HCPCS: 97116-GP; 97161-GP; 97165-GO; 97530-GP; 97535-GO; C1713; C1769; J0171; J0690; J1100; J1650; J1815; J2250; J2270; J2370; J2405; J2704; J2710; J3010